=== PATIENT | male | born 1975 | race Caucasian/White ===

== ENCOUNTER 2021-07-29 16:00 | Emergency (ER) | payer OTHER ==
[~2021-07-29] VITALS: Ht 180.3 cm; Wt 163.8 kg
[2021-07-29] MEDS ORDERED: EUTHYROX125 MCG PO (16:24)
[2021-07-29] MEDS ORDERED: METFORMIN HCL500 MG PO (16:24)
== END 2021-07-29 19:12 | disposition home or self-care (01) ==
LOC: ED 16:00
DX: U07.1 COVID-19 (principal); J40 Bronchitis, not specified as acute or chronic; E11.9 Type 2 diabetes mellitus without complications; G47.30 Sleep apnea, unspecified; E03.9 Hypothyroidism, unspecified; Z79.84 Long term (current) use of oral hypoglycemic drugs; Z79.899 Other long term (current) drug therapy
CPT/HCPCS: 80053; 85025; 99284-25; M0243; Q0244; U0003